=== PATIENT | female | born 1940 | race African-American/Black ===

== ENCOUNTER 2017-02-22 19:19 | Inpatient (IN) ==
[2017-02-22 20:33] LABS: Basophils % 0.1 % (0.0-0.8); Eosinophils # 0.1 10*3/uL (0.0-0.87); Eosinophils % 1.5 % (0.00-10.9); Immature Granulocytes % 0.3 %; Immature Granulocytes Absolute 0.02 #; Lymphocytes # 0.9 10*3/uL (1.4-4.0); Lymphocytes % 12.7 % (21.3-54.2); Mean Corpuscular HGB Conc 26.3 GM/DL (32-36); Mean Corpuscular Hemoglobin 19 PG (27-34); Mean Corpuscular Volume 72.2 FL (87-102); Monocytes # 0.4 10*3/uL (0.11-0.8); Monocytes % 6.4 % (1.7-12.7); Neutrophils # 5.3 10*3/uL (1.4-7.4); Platelet Count 231 T/CUMM (130-400); Red Blood Count 2.63 MC/CUMM (3.8-5.5); Red Cell Distribution Width 19.8 % (9.3-17.3); White Blood Count 6.8 T/CUMM (4-12)
[2017-02-22 20:39] LABS: PT Patient Result 10.4 SECS; Partial Thromboplastin Time 21.9 SECS (0-40)
[2017-02-22] MEDS ORDERED: SODIUM CHLORIDE 0.9% 1,000 ML IV PRN ×2 (20:46→23:59)
[2017-02-22 21:08] LABS: Potassium 4.1 MMOL/L (3.5-5.1)
[2017-02-22 21:19] LABS: Albumin 3.3 G/DL (3.4-5.0); Bilirubin,Total 0.4 MG/DL (0.2-1.0); Calcium 8.8 MG/DL (8.5-10.1); Total Protein 7.5 G/DL (6.4-8.3)
[2017-02-22 21:20] LABS: Osmolality,Calculated 283.4 MOS/KG (273-304)
[2017-02-22 21:36] LABS: Troponin I Only 0.018 NG/ML (0.00-0.045)
[2017-02-22 23:51] LABS: Hypochromasia 2+; Platelet Estimate Normal
[2017-02-22] MEDS ORDERED: ONDANSETRON 4 MG/2 ML VIAL IV PRN (23:59)
[2017-02-22] MEDS ORDERED: ACETAMINOPHEN 325 MG TABLET PO PRN (23:59)
[2017-02-23 06:51] LABS: Apearance,Urine CLEAR (Clear); Bacteria,Urine Occasional /HPF (Few); Bilirubin,Urine Negative (Negative); Blood, Urine Negative (Negative); Glucose,Urine (UA) Negative (Negative); Ketones,Urine Negative (Negative); Nitrite,Urine Negative (Negative); Protein,Urine Negative; RBC,Urine 1 /HPF (0-4); Squamous Epithelial Cell,Urine Occasional /HPF (0-10); Urine Color Straw (Yellow); Urine Specific Gravity 1.005 (1.001-1.035); Urine Urobilinogen < 2.0 EU/DL (0.2-1.0); WBC,Urine <1 /HPF (0-6)
[2017-02-23] MEDS: PANTOPRAZOLE 40 MG TABLET PO SCH ×2 (08:33→20:31)
[2017-02-23] MEDS ORDERED: DEXTROSE 50% 25 GM/50 ML VIAL IV PRN (08:55)
[2017-02-23] MEDS ORDERED: GLUCAGON 1 MG VIAL IM PRN (08:55)
[2017-02-23] MEDS ORDERED: FUROSEMIDE 20 MG TABLET PO PRN (11:06)
[2017-02-23] MEDS ORDERED: POTASSIUM CHLORIDE 8 MEQ CAPSULE PO PRN (11:30)
[2017-02-23] MEDS ORDERED: LORATADINE 10 MG TABLET PO PRN (11:30)
[2017-02-23 11:56] LABS: Basophils % 0.5 % (0.0-0.8); Eosinophils # 0.1 10*3/uL (0.0-0.87); Eosinophils % 0.9 % (0.00-10.9); Immature Granulocytes % 0.5 %; Immature Granulocytes Absolute 0.04 #; Lymphocytes # 0.9 10*3/uL (1.4-4.0); Lymphocytes % 12.3 % (21.3-54.2); Mean Corpuscular Hemoglobin 22 PG (27-34); Mean Corpuscular Volume 74.4 FL (87-102); Monocytes # 0.4 10*3/uL (0.11-0.8); Monocytes % 5.1 % (1.7-12.7); Neutrophils % 80.7 % (38.7-73.9); Platelet Count 231 T/CUMM (130-400); Red Blood Count 3.63 MC/CUMM (3.8-5.5); Red Cell Distribution Width 18.5 % (9.3-17.3); White Blood Count 7.5 T/CUMM (4-12)
[2017-02-23 11:59] LABS: Hemoglobin 8.1 GM/DL (12.0-16.0)
[2017-02-23 12:20] LABS: Giant Platelets Few; Hypochromasia 1+; Ovalocytes Slight; Platelet Estimate Adequate
[2017-02-23 12:21] LABS: Calcium 8.6 MG/DL (8.5-10.1); Osmolality,Calculated 277.7 MOS/KG (273-304); Potassium 3.9 MMOL/L (3.5-5.1)
[2017-02-23 14:12] LABS: % Iron Saturation 28.6 % (18-50); Ferritin 11.3 ng/ml (8-252)
[2017-02-23] MEDS: ATORVASTATIN 80 MG TABLET PO SCH (20:31)
[2017-02-23] MEDS: MONTELUKAST 10 MG TABLET PO SCH (20:31)
[2017-02-23] MEDS: CALCIUM (CARBONATE)/VITAMIN D 600 MG-400 UNIT TABLET PO SCH (20:31)
[2017-02-23] MEDS: DONEPEZIL 10 MG TABLET PO SCH (20:31)
[2017-02-23] MEDS: MEMANTINE 5 MG TABLET PO SCH (20:31)
[2017-02-24] MEDS ORDERED: NON-FORMULARY MEDICATION (Omeprazole [Prilosec] 20 MG) PO SCH (07:30)
[2017-02-24] MEDS: metFORMIN 500 MG TABLET PO SCH (09:43)
[2017-02-24] MEDS: MULTIVITAMIN (CENTRUM) TABLET PO SCH (09:44)
[2017-02-24] MEDS: PANTOPRAZOLE 40 MG TABLET PO SCH ×2 (09:44→20:50)
[2017-02-24] MEDS: MEMANTINE 5 MG TABLET PO SCH ×2 (09:44→20:50)
[2017-02-24] MEDS: CALCIUM (CARBONATE)/VITAMIN D 600 MG-400 UNIT TABLET PO SCH ×2 (09:44→20:49)
[2017-02-24] MEDS ORDERED: IRON DEXTRAN 25 MG in SYRINGE 1 EACH IV ONE (11:30)
[2017-02-24] MEDS ORDERED: PROPOFOL 200 MG/20 ML VIAL IV ONE (12:25)
[2017-02-24] MEDS ORDERED: LIDOCAINE 2% 5 ML VIAL ONE (12:25)
[2017-02-24] MEDS ORDERED: IRON DEXTRAN IV ONE (12:30)
[2017-02-24] MEDS ORDERED: SODIUM CHLORIDE 0.9% IV ONE (12:30)
[2017-02-24] MEDS: DONEPEZIL 10 MG TABLET PO SCH (20:49)
[2017-02-24] MEDS: ATORVASTATIN 80 MG TABLET PO SCH (20:50)
[2017-02-24] MEDS: MONTELUKAST 10 MG TABLET PO SCH (20:50)
[2017-02-25 08:33] LABS: Basophils % 0.4 % (0.0-0.8); Eosinophils # 0.1 10*3/uL (0.0-0.87); Eosinophils % 0.9 % (0.00-10.9); Hematocrit 27.9 VOL% (35.7-47.0); Immature Granulocytes % 0.5 %; Immature Granulocytes Absolute 0.04 #; Lymphocytes # 0.8 10*3/uL (1.4-4.0); Lymphocytes % 9.1 % (21.3-54.2); Mean Corpuscular HGB Conc 28.7 GM/DL (32-36); Mean Corpuscular Hemoglobin 22 PG (27-34); Mean Corpuscular Volume 76.9 FL (87-102); Mean Platelet Volume 12.9 FL (9.6-12.0); Monocytes # 0.5 10*3/uL (0.11-0.8); Monocytes % 5.3 % (1.7-12.7); NRBC # 0.02 10*3/uL; Neutrophils # 7.1 10*3/uL (1.4-7.4); Neutrophils % 83.8 % (38.7-73.9); Platelet Count 226 T/CUMM (130-400); Red Blood Count 3.63 MC/CUMM (3.8-5.5); Red Cell Distribution Width 20.1 % (9.3-17.3); White Blood Count 8.5 T/CUMM (4-12)
[2017-02-25] MEDS: MEMANTINE 5 MG TABLET PO SCH ×2 (09:09→21:13)
[2017-02-25] MEDS: MULTIVITAMIN (CENTRUM) TABLET PO SCH (09:09)
[2017-02-25] MEDS: PANTOPRAZOLE 40 MG TABLET PO SCH ×2 (09:09→21:13)
[2017-02-25] MEDS: CALCIUM (CARBONATE)/VITAMIN D 600 MG-400 UNIT TABLET PO SCH ×2 (09:09→21:12)
[2017-02-25] MEDS: metFORMIN 500 MG TABLET PO SCH ×2 (09:09→21:13)
[2017-02-25 09:31] LABS: Eosinophils 2 % (0-10); Hypochromasia 1+; Lymphocytes 11 % (20-55); Microcytosis 1+; Nucleated Red Blood Cells 1 (0-5); Ovalocytes Slight; Segmented Neutrophils 84 % (50-85); Total Cells Counted 100
[2017-02-25 09:32] LABS: Acanthocytes Few; Platelet Estimate Adequate
[2017-02-25] MEDS: DONEPEZIL 10 MG TABLET PO SCH (21:12)
[2017-02-25] MEDS: ATORVASTATIN 80 MG TABLET PO SCH (21:13)
[2017-02-25] MEDS: MONTELUKAST 10 MG TABLET PO SCH (21:13)
[2017-02-26 06:19] LABS: Basophils % 0.3 % (0.0-0.8); Eosinophils # 0.1 10*3/uL (0.0-0.87); Eosinophils % 1.2 % (0.00-10.9); Hematocrit 26.5 VOL% (35.7-47.0); Hemoglobin 7.7 GM/DL (12.0-16.0); Immature Granulocytes % 0.8 %; Immature Granulocytes Absolute 0.06 #; Lymphocytes # 0.9 10*3/uL (1.4-4.0); Mean Corpuscular HGB Conc 29.1 GM/DL (32-36); Mean Corpuscular Hemoglobin 22 PG (27-34); Mean Corpuscular Volume 76.6 FL (87-102); Monocytes # 0.5 10*3/uL (0.11-0.8); Monocytes % 6.5 % (1.7-12.7); NRBC # 0.07 10*3/uL; Neutrophils # 6.2 10*3/uL (1.4-7.4); Neutrophils % 79.2 % (38.7-73.9); Platelet Count 203 T/CUMM (130-400); Red Blood Count 3.46 MC/CUMM (3.8-5.5); Red Cell Distribution Width 21.1 % (9.3-17.3); White Blood Count 7.8 T/CUMM (4-12)
[2017-02-26 06:46] LABS: Acanthocytes Few; Anisocytosis Slight; Burr Cells Few; Hypochromasia Slight; Microcytosis 1+; Platelet Estimate Normal; Poikilocytosis 1+
[2017-02-26] MEDS: CALCIUM (CARBONATE)/VITAMIN D 600 MG-400 UNIT TABLET PO SCH (09:18)
[2017-02-26] MEDS: metFORMIN 500 MG TABLET PO SCH (09:18)
[2017-02-26] MEDS: MEMANTINE 5 MG TABLET PO SCH (09:18)
[2017-02-26] MEDS: PANTOPRAZOLE 40 MG TABLET PO SCH (09:18)
[2017-02-26] MEDS: MULTIVITAMIN (CENTRUM) TABLET PO SCH (09:18)
[2017-02-26] MEDS ORDERED: SODIUM CHLORIDE 0.9% 1,000 ML IV PRN (09:54)
[2017-02-26] MEDS ORDERED: FUROSEMIDE 40 MG TABLET PO ONE (15:29)
[2017-02-26 16:36] LABS: Hematocrit 32.6 VOL% (35.7-47.0); Hemoglobin 9.8 GM/DL (12.0-16.0)
[2017-02-26 16:42] VITALS: BP 145/70
== END 2017-02-26 18:15 | disposition home health service (06) | DRG 811 ==
LOC: EDUNIT# → EDBD → N.ED 19:19 → N.EDINP 23:59 → N.5E 02-23 00:41
PROVIDERS: ADMIT Internal Medicine; ATTEND Internal Medicine

== ENCOUNTER 2017-11-23 17:53 | Inpatient (IN) ==
[2017-11-23] MEDS ORDERED: FUROSEMIDE 100 MG/10 ML VIAL IV STA (18:36)
[2017-11-23] MEDS ORDERED: ONDANSETRON 4 MG/2 ML VIAL IV STA (18:36)
[2017-11-23] MEDS ORDERED: methylPREDNISolone SOD SUC 125 MG/2 ML VIAL IV STA (18:36)
[2017-11-23] MEDS ORDERED: ALBUTEROL NEB SOLN 5 MG/ML 20 ML/BOTTLE RESP TX SCH (19:00)
[2017-11-23 19:09] LABS: ABG Base Excess -4.9 MMOL/L (-2.5-2.5); ABG HCO3 18.7 MMOL/L (20-26); ABG Oxygen Saturation 97.2 % (95-100); ABG PCO2 27.6 MM HG (35-48); ABG PH 7.448 (7.35-7.45); ABG PO2 107.1 MM HG (80-95); ABG TCO2 19.5 MMOL/L (23-27); Allen Test Positive; Pt O2 Delivery Device Room Air
[2017-11-23 19:28] LABS: Immature Granulocytes % 0.3 %; Immature Granulocytes Absolute 0.01 #; Lymphocytes # 0.6 10*3/uL (1.4-4.0); Lymphocytes % 18.7 % (21.3-54.2); Mean Corpuscular HGB Conc 28.7 GM/DL (32-36); Mean Corpuscular Hemoglobin 29 PG (27-34); Mean Corpuscular Volume 99.3 FL (87-102); Mean Platelet Volume 12.6 FL (9.6-12.0); Monocytes # 0.2 10*3/uL (0.11-0.8); Monocytes % 4.5 % (1.7-12.7); Neutrophils # 2.5 10*3/uL (1.4-7.4); Neutrophils % 76.5 % (38.7-73.9); Red Blood Count 1.51 MC/CUMM (3.8-5.5); Red Cell Distribution Width 19.1 % (9.3-17.3); White Blood Count 3.3 T/CUMM (4-12)
[2017-11-23 19:31] LABS: Hemoglobin 4.3 GM/DL (12.0-16.0)
[2017-11-23 19:39] LABS: INR 0.9; PT Patient Result 9.8 SECS
[2017-11-23 19:48] LABS: Elliptocytes 1+; Hypochromasia 2+; Polychromasia Few
[2017-11-23 19:49] LABS: Alanine Aminotransferase 31 U/L (13-56); Albumin 2.8 G/DL (3.4-5.0); Alkaline Phosphatase 115 U/L (45-117); Aspartate Amino Transferase 49 U/L (0-37); Bilirubin,Total < 0.39 MG/DL (0.2-1.0); Blood Urea Nitrogen 38 MG/DL (7-18); Burr Cells 1+; Calcium 8.7 MG/DL (8.5-10.1); Glucose 469 MG/DL (74-106); Osmolality,Calculated 304.7 MOS/KG (273-304); Platelet Estimate Decreased; Potassium 4.4 MMOL/L (3.5-5.1); Sodium 138 MMOL/L (136-145); Total Protein 6.8 G/DL (6.4-8.3)
[2017-11-23 19:51] LABS: Platelet Count 76 T/CUMM (130-400)
[2017-11-23 20:02] LABS: Apearance,Urine CLEAR (Clear); Bilirubin,Urine Negative (Negative); Blood, Urine Negative (Negative); Glucose,Urine (UA) >=500 mg/dL (Negative); Ketones,Urine Negative (Negative); Mucus,Urine Occasional /LPF (Occasional); Nitrite,Urine Negative (Negative); Protein,Urine Negative; Squamous Epithelial Cell,Urine Occasional /HPF (0-10); Urine Color Colorless (Yellow); Urine Specific Gravity 1.007 (1.001-1.035); Urine Urobilinogen < 2.0 EU/DL (0.2-1.0)
[2017-11-23] MEDS ORDERED: SODIUM CHLORIDE 0.9% 1,000 ML IV PRN (20:27)
[2017-11-23] MEDS ORDERED: ONDANSETRON 4 MG/2 ML VIAL IV PRN (21:05)
[2017-11-23] MEDS ORDERED: MORPHINE 4 MG/1 ML VIAL IV PRN (21:05)
[2017-11-23] MEDS ORDERED: NICOTINE 21 MG/24 HR PATCH TRANSDERM PRN (21:05)
[2017-11-23] MEDS ORDERED: ALBUTEROL 2.5 MG/3 ML NEB RESP TX PRN (21:05)
[2017-11-23] MEDS ORDERED: DEXTROSE 5% NACL 0.45% 1,000 ML IV SCH (21:30)
[2017-11-23] MEDS ORDERED: GLUCAGON 1 MG VIAL IM PRN (21:45)
[2017-11-23] MEDS ORDERED: DEXTROSE 50% 25 GM/50 ML VIAL IV PRN (21:45)
[2017-11-23 22:05] LABS: % Iron Saturation 16.4 % (18-50)
[2017-11-23] MEDS ORDERED: INSULIN REGULAR 100 UNIT/ML IV ONE (23:37)
[2017-11-24] MEDS: INSULIN REGULAR 100 UNIT/ML SUBCUT SCH ×4 (00:38→19:29)
[2017-11-24] MEDS: SODIUM CHLORIDE 0.45% 1,000 ML IV SCH ×2 (00:55→21:05)
[2017-11-24] MEDS ORDERED: FUROSEMIDE 20 MG/2 ML VIAL IV ONE ×2 (00:58→04:00)
[2017-11-24 05:11] LABS: Basophils % 0.3 % (0.0-0.8); Hemoglobin 9.1 GM/DL (12.0-16.0); Immature Granulocytes % 0.8 %; Immature Granulocytes Absolute 0.03 #; Lymphocytes # 0.4 10*3/uL (1.4-4.0); Lymphocytes % 9.8 % (21.3-54.2); Mean Corpuscular HGB Conc 31.4 GM/DL (32-36); Mean Corpuscular Hemoglobin 30 PG (27-34); Mean Corpuscular Volume 94.8 FL (87-102); Mean Platelet Volume 13.1 FL (9.6-12.0); Monocytes # 0.1 10*3/uL (0.11-0.8); Monocytes % 2.6 % (1.7-12.7); NRBC # 0.04 10*3/uL; Neutrophils # 3.3 10*3/uL (1.4-7.4); Neutrophils % 86.5 % (38.7-73.9); Red Blood Count 3.06 MC/CUMM (3.8-5.5); Red Cell Distribution Width 16.6 % (9.3-17.3); White Blood Count 3.9 T/CUMM (4-12)
[2017-11-24 05:17] LABS: Platelet Count 62 T/CUMM (130-400)
[2017-11-24 05:34] LABS: Anisocytosis 1+; Hypochromasia 1+; Microcytosis 1+
[2017-11-24 05:35] LABS: Platelet Estimate Decreased
[2017-11-24 05:45] LABS: Bilirubin,Total 0.8 MG/DL (0.2-1.0); Calcium 9.2 MG/DL (8.5-10.1); Osmolality,Calculated 307.3 MOS/KG (273-304); Potassium 4.2 MMOL/L (3.5-5.1); Risk Ratio 3.59; Total Protein 7.1 G/DL (6.4-8.3)
[2017-11-24 05:54] LABS: Folate > 24.0 NG/ML (5.4-24.0); Vitamin B12 1520 PG/ML (211-911)
[2017-11-24 06:02] LABS: Troponin I 20.6 NG/ML (0.00-0.045)
[2017-11-24] MEDS: ISOSORBIDE MONONITRATE 30 MG TABLET PO SCH (08:31)
[2017-11-24] MEDS: CARVEDILOL 3.125 MG TABLET PO SCH ×2 (08:31→21:05)
[2017-11-24] MEDS: ASCORBIC ACID 500 MG TABLET PO SCH ×2 (08:31→21:05)
[2017-11-24] MEDS: PANTOPRAZOLE 40 MG VIAL IV SCH (08:31)
[2017-11-24 13:39] LABS: Troponin I 11.4 NG/ML (0.00-0.045)
[2017-11-24] MEDS ORDERED: DONEPEZIL 10 MG TABLET PO SCH (21:00)
[2017-11-24] MEDS: MULTIVITAMIN (CENTRUM) TABLET PO SCH (21:05)
[2017-11-24] MEDS: MONTELUKAST 10 MG TABLET PO SCH (21:05)
[2017-11-24] MEDS: MEMANTINE 5 MG TABLET PO SCH (21:05)
[2017-11-24] MEDS: CALCIUM (CARBONATE)/VITAMIN D 600 MG-400 UNIT TABLET PO SCH (21:05)
[2017-11-24] MEDS: ATORVASTATIN 80 MG TABLET PO SCH (21:06)
[2017-11-24 21:25] LABS: Troponin I 6.21 NG/ML (0.00-0.045)
[2017-11-25] MEDS: INSULIN REGULAR 100 UNIT/ML SUBCUT SCH ×4 (01:19→18:14)
[2017-11-25 04:49] LABS: Basophils % 0.3 % (0.0-0.8); Eosinophils % 0.3 % (0.00-10.9); Hematocrit 23.8 VOL% (35.7-47.0); Hemoglobin 7.5 GM/DL (12.0-16.0); Immature Granulocytes % 0.6 %; Immature Granulocytes Absolute 0.02 #; Lymphocytes # 1.1 10*3/uL (1.4-4.0); Lymphocytes % 31.1 % (21.3-54.2); Mean Corpuscular HGB Conc 31.5 GM/DL (32-36); Mean Corpuscular Hemoglobin 30 PG (27-34); Mean Corpuscular Volume 95.2 FL (87-102); Mean Platelet Volume 13.5 FL (9.6-12.0); Monocytes # 0.2 10*3/uL (0.11-0.8); Monocytes % 6.4 % (1.7-12.7); NRBC # 0.02 10*3/uL; Neutrophils # 2.2 10*3/uL (1.4-7.4); Neutrophils % 61.3 % (38.7-73.9); Red Cell Distribution Width 17.6 % (9.3-17.3); White Blood Count 3.6 T/CUMM (4-12)
[2017-11-25 04:52] LABS: Platelet Count 44 T/CUMM (130-400)
[2017-11-25 05:01] LABS: Osmolality,Calculated 292.1 MOS/KG (273-304); Potassium 3.8 MMOL/L (3.5-5.1)
[2017-11-25 05:18] LABS: Platelet Estimate Decreased
[2017-11-25 05:19] LABS: Anisocytosis 2+; Hypochromasia 2+; Microcytosis 2+; Ovalocytes 1+; Polychromasia Few
[2017-11-25] MEDS: CALCIUM (CARBONATE)/VITAMIN D 600 MG-400 UNIT TABLET PO SCH ×2 (09:49→20:34)
[2017-11-25] MEDS: FERROUS SULFATE 325 MG TABLET PO SCH (09:49)
[2017-11-25] MEDS: PANTOPRAZOLE 40 MG TABLET PO SCH (09:49)
[2017-11-25] MEDS: MEMANTINE 5 MG TABLET PO SCH ×2 (09:49→20:34)
[2017-11-25] MEDS: MULTIVITAMIN (CENTRUM) TABLET PO SCH ×2 (09:49→20:34)
[2017-11-25] MEDS: FUROSEMIDE 20 MG TABLET PO SCH (09:50)
[2017-11-25] MEDS: LORATADINE 10 MG TABLET PO SCH (09:50)
[2017-11-25] MEDS: ISOSORBIDE MONONITRATE 30 MG TABLET PO SCH (09:50)
[2017-11-25] MEDS: ASCORBIC ACID 500 MG TABLET PO SCH ×2 (09:50→20:34)
[2017-11-25] MEDS: CARVEDILOL 3.125 MG TABLET PO SCH ×2 (09:54→20:34)
[2017-11-25] MEDS: PANTOPRAZOLE 40 MG VIAL IV SCH (11:49)
[2017-11-25 14:24] LABS: Basophils % 0.3 % (0.0-0.8); Eosinophils % 0.6 % (0.00-10.9); Hematocrit 24.7 VOL% (35.7-47.0); Hemoglobin 7.8 GM/DL (12.0-16.0); Immature Granulocytes % 0.6 %; Immature Granulocytes Absolute 0.02 #; Lymphocytes % 27.4 % (21.3-54.2); Mean Corpuscular HGB Conc 31.6 GM/DL (32-36); Mean Corpuscular Hemoglobin 30 PG (27-34); Mean Corpuscular Volume 95.4 FL (87-102); Mean Platelet Volume 12.8 FL (9.6-12.0); Monocytes # 0.2 10*3/uL (0.11-0.8); Monocytes % 5.8 % (1.7-12.7); NRBC # 0.03 10*3/uL; Neutrophils # 2.4 10*3/uL (1.4-7.4); Neutrophils % 65.3 % (38.7-73.9); Platelet Count 52 T/CUMM (130-400); Red Blood Count 2.59 MC/CUMM (3.8-5.5); Red Cell Distribution Width 17.3 % (9.3-17.3); White Blood Count 3.6 T/CUMM (4-12)
[2017-11-25 14:33] LABS: INR 0.9
[2017-11-25 14:45] LABS: Hypochromasia Slight
[2017-11-25 14:46] LABS: Polychromasia Few
[2017-11-25 14:47] LABS: Anisocytosis Slight; Macrocytosis Slight
[2017-11-25 14:49] LABS: Platelet Estimate Normal
[2017-11-25] MEDS ORDERED: FUROSEMIDE 20 MG/2 ML VIAL IV PRN (15:00)
[2017-11-25] MEDS ORDERED: SODIUM CHLORIDE 0.9% 1,000 ML IV PRN (15:00)
[2017-11-25] MEDS: MONTELUKAST 10 MG TABLET PO SCH (20:34)
[2017-11-25] MEDS: ATORVASTATIN 80 MG TABLET PO SCH (20:34)
[2017-11-26] MEDS: SODIUM CHLORIDE 0.45% 1,000 ML IV SCH (00:26)
[2017-11-26] MEDS: INSULIN REGULAR 100 UNIT/ML SUBCUT SCH ×4 (03:18→18:54)
[2017-11-26 05:47] LABS: Basophils % 0.5 % (0.0-0.8); Eosinophils % 0.5 % (0.00-10.9); Hematocrit 32.9 VOL% (35.7-47.0); Hemoglobin 10.7 GM/DL (12.0-16.0); Immature Granulocytes % 0.2 %; Immature Granulocytes Absolute 0.01 #; Lymphocytes # 1.1 10*3/uL (1.4-4.0); Mean Corpuscular HGB Conc 32.5 GM/DL (32-36); Mean Corpuscular Hemoglobin 30 PG (27-34); Mean Corpuscular Volume 92.2 FL (87-102); Mean Platelet Volume 12.6 FL (9.6-12.0); Monocytes # 0.2 10*3/uL (0.11-0.8); Monocytes % 3.9 % (1.7-12.7); NRBC # 0.04 10*3/uL; Neutrophils # 2.8 10*3/uL (1.4-7.4); Neutrophils % 67.9 % (38.7-73.9); Platelet Count 47 T/CUMM (130-400); Red Blood Count 3.57 MC/CUMM (3.8-5.5); Red Cell Distribution Width 16.4 % (9.3-17.3); White Blood Count 4.1 T/CUMM (4-12)
[2017-11-26 06:04] LABS: Calcium 7.9 MG/DL (8.5-10.1); Osmolality,Calculated 284.4 MOS/KG (273-304); Potassium 3.5 MMOL/L (3.5-5.1)
[2017-11-26 06:08] LABS: Hypochromasia 1+; Ovalocytes Slight; Platelet Estimate Decreased
[2017-11-26 06:09] LABS: Microcytosis Slight
[2017-11-26] MEDS ORDERED: MAGNESIUM SULF RIDER 2 GM in PREMIX 1 EACH IV ONE (09:53)
[2017-11-26] MEDS: ASCORBIC ACID 500 MG TABLET PO SCH ×2 (10:09→20:23)
[2017-11-26] MEDS: CALCIUM (CARBONATE)/VITAMIN D 600 MG-400 UNIT TABLET PO SCH ×2 (10:09→20:23)
[2017-11-26] MEDS: PANTOPRAZOLE 40 MG TABLET PO SCH (10:10)
[2017-11-26] MEDS: FERROUS SULFATE 325 MG TABLET PO SCH (10:10)
[2017-11-26] MEDS: MULTIVITAMIN (CENTRUM) TABLET PO SCH ×2 (10:10→20:23)
[2017-11-26] MEDS: LORATADINE 10 MG TABLET PO SCH (10:10)
[2017-11-26] MEDS: MEMANTINE 5 MG TABLET PO SCH ×2 (10:11→20:23)
[2017-11-26] MEDS: ISOSORBIDE MONONITRATE 30 MG TABLET PO SCH (10:11)
[2017-11-26] MEDS: FUROSEMIDE 20 MG TABLET PO SCH (10:12)
[2017-11-26] MEDS: CARVEDILOL 3.125 MG TABLET PO SCH ×2 (10:12→20:23)
[2017-11-26] MEDS: MONTELUKAST 10 MG TABLET PO SCH (20:23)
[2017-11-26] MEDS: ATORVASTATIN 80 MG TABLET PO SCH (20:23)
[2017-11-27] MEDS: INSULIN REGULAR 100 UNIT/ML SUBCUT SCH ×4 (00:14→17:16)
[2017-11-27 05:23] LABS: Basophils % 0.2 % (0.0-0.8); Eosinophils % 0.6 % (0.00-10.9); Hematocrit 33.4 VOL% (35.7-47.0); Hemoglobin 10.9 GM/DL (12.0-16.0); Immature Granulocytes % 0.4 %; Immature Granulocytes Absolute 0.02 #; Lymphocytes # 0.9 10*3/uL (1.4-4.0); Lymphocytes % 17.2 % (21.3-54.2); Mean Corpuscular HGB Conc 32.6 GM/DL (32-36); Mean Corpuscular Hemoglobin 31 PG (27-34); Mean Corpuscular Volume 94.4 FL (87-102); Mean Platelet Volume 13.7 FL (9.6-12.0); Monocytes # 0.2 10*3/uL (0.11-0.8); Monocytes % 2.8 % (1.7-12.7); Neutrophils # 4.2 10*3/uL (1.4-7.4); Neutrophils % 78.8 % (38.7-73.9); Platelet Count 58 T/CUMM (130-400); Red Blood Count 3.54 MC/CUMM (3.8-5.5); Red Cell Distribution Width 16.9 % (9.3-17.3); White Blood Count 5.4 T/CUMM (4-12)
[2017-11-27 05:33] LABS: Calcium 8.7 MG/DL (8.5-10.1); Osmolality,Calculated 288.1 MOS/KG (273-304); Potassium 3.6 MMOL/L (3.5-5.1)
[2017-11-27 06:03] LABS: Band Neutrophils 1 % (0-10); Eosinophils 1 % (0-10); Hypochromasia 1+; Lymphocytes 14 % (20-55); Macrocytosis Slight; Platelet Estimate Decreased; Segmented Neutrophils 83 % (50-85); Total Cells Counted 100
[2017-11-27 06:04] LABS: Polychromasia Slight
[2017-11-27] MEDS ORDERED: INFLUENZA VIRUS VACCINE 0.5 ML SYRINGE IM ONE (07:20)
[2017-11-27] MEDS ORDERED: MAGNESIUM SULF RIDER 4 GM in PREMIX 1 EACH IV PRN (09:23)
[2017-11-27] MEDS ORDERED: MAGNESIUM SULF RIDER 2 GM in PREMIX 1 EACH IV PRN (09:23)
[2017-11-27] MEDS: MULTIVITAMIN (CENTRUM) TABLET PO SCH ×2 (09:41→22:45)
[2017-11-27] MEDS: ISOSORBIDE MONONITRATE 30 MG TABLET PO SCH (09:41)
[2017-11-27] MEDS: FUROSEMIDE 20 MG TABLET PO SCH (09:42)
[2017-11-27] MEDS: CALCIUM (CARBONATE)/VITAMIN D 600 MG-400 UNIT TABLET PO SCH ×2 (09:42→22:44)
[2017-11-27] MEDS: ASCORBIC ACID 500 MG TABLET PO SCH ×2 (09:42→22:45)
[2017-11-27] MEDS: LORATADINE 10 MG TABLET PO SCH (09:42)
[2017-11-27] MEDS: CARVEDILOL 3.125 MG TABLET PO SCH ×2 (09:42→22:45)
[2017-11-27] MEDS: MEMANTINE 5 MG TABLET PO SCH ×2 (09:42→22:45)
[2017-11-27] MEDS: FERROUS SULFATE 325 MG TABLET PO SCH (09:42)
[2017-11-27] MEDS: PANTOPRAZOLE 40 MG TABLET PO SCH (09:42)
[2017-11-27] MEDS ORDERED: TUBERCULIN SKIN TEST 0.1 ML SYRINGE INTRADERM ONE (12:16)
[2017-11-27] MEDS: ATORVASTATIN 80 MG TABLET PO SCH (22:44)
[2017-11-27] MEDS: MONTELUKAST 10 MG TABLET PO SCH (22:44)
[2017-11-28] MEDS: INSULIN REGULAR 100 UNIT/ML SUBCUT SCH ×3 (00:39→12:35)
[2017-11-28 04:14] LABS: Basophils % 0.2 % (0.0-0.8); Eosinophils % 0.8 % (0.00-10.9); Hematocrit 34.6 VOL% (35.7-47.0); Hemoglobin 10.7 GM/DL (12.0-16.0); Immature Granulocytes % 0.2 %; Immature Granulocytes Absolute 0.01 #; Lymphocytes # 0.9 10*3/uL (1.4-4.0); Lymphocytes % 17.3 % (21.3-54.2); Mean Corpuscular HGB Conc 30.9 GM/DL (32-36); Mean Corpuscular Hemoglobin 30 PG (27-34); Mean Corpuscular Volume 95.3 FL (87-102); Mean Platelet Volume 13.3 FL (9.6-12.0); Monocytes # 0.2 10*3/uL (0.11-0.8); Monocytes % 4.1 % (1.7-12.7); Neutrophils # 3.8 10*3/uL (1.4-7.4); Neutrophils % 77.4 % (38.7-73.9); Red Blood Count 3.63 MC/CUMM (3.8-5.5); Red Cell Distribution Width 17.2 % (9.3-17.3); White Blood Count 4.9 T/CUMM (4-12)
[2017-11-28 04:18] LABS: Platelet Count 71 T/CUMM (130-400)
[2017-11-28 04:38] LABS: Atypical Lymphocytes Few; Band Neutrophils 1 % (0-10); Eosinophils 1 % (0-10); Lymphocytes 21 % (20-55); Segmented Neutrophils 70 % (50-85); Total Cells Counted 100
[2017-11-28 04:39] LABS: Hypochromasia 1+; Macrocytosis 1+; Ovalocytes Slight; Polychromasia Slight
[2017-11-28 04:40] LABS: Platelet Estimate Decreased
[2017-11-28] MEDS: MULTIVITAMIN (CENTRUM) TABLET PO SCH (09:37)
[2017-11-28] MEDS: PANTOPRAZOLE 40 MG TABLET PO SCH (09:37)
[2017-11-28] MEDS: MEMANTINE 5 MG TABLET PO SCH (09:37)
[2017-11-28] MEDS: ISOSORBIDE MONONITRATE 30 MG TABLET PO SCH (09:37)
[2017-11-28] MEDS: CALCIUM (CARBONATE)/VITAMIN D 600 MG-400 UNIT TABLET PO SCH (09:38)
[2017-11-28] MEDS: ASCORBIC ACID 500 MG TABLET PO SCH (09:38)
[2017-11-28] MEDS: CARVEDILOL 3.125 MG TABLET PO SCH (09:38)
[2017-11-28] MEDS: FERROUS SULFATE 325 MG TABLET PO SCH (09:38)
[2017-11-28] MEDS: LORATADINE 10 MG TABLET PO SCH (09:38)
[2017-11-28] MEDS: FUROSEMIDE 20 MG TABLET PO SCH (09:38)
[2017-11-28 13:12] VITALS: BP 131/56
== END 2017-11-28 14:02 | DRG 280 ==
LOC: EDBD → EDUNIT# → N.ED 17:53 → SUATTDRO 21:05 → N.EDINP 21:05 → N.CC 22:14 → N.4E 11-24 17:47
PROVIDERS: ADMIT Family Medicine; ATTEND Internal Medicine

== ENCOUNTER 2017-12-23 16:35 | Inpatient (IN) ==
[2017-12-23] MEDS ORDERED: ONDANSETRON 4 MG/2 ML VIAL IV STA (17:00)
[2017-12-23] MEDS ORDERED: KETOROLAC 30 MG/1 ML VIAL IV STA (17:00)
[2017-12-23 17:53] LABS: Alanine Aminotransferase 23 U/L (13-56); Albumin 2.5 G/DL (3.4-5.0); Alkaline Phosphatase 111 U/L (45-117); Aspartate Amino Transferase 23 U/L (0-37); Blood Urea Nitrogen 21 MG/DL (7-18); Glucose 291 MG/DL (74-106); Osmolality,Calculated 286.8 MOS/KG (273-304); Potassium 3.5 MMOL/L (3.5-5.1); Sodium 137 MMOL/L (136-145); Total Protein 6.6 G/DL (6.4-8.3)
[2017-12-23 17:54] LABS: Troponin I 0.056 NG/ML (0.00-0.045)
[2017-12-23] MEDS ORDERED: NITROGLYCERIN 2% OINT 1 INCH/GM PACK TOP STA (18:25)
[2017-12-23 18:46] LABS: Basophils % 0.1 % (0.0-0.8); Immature Granulocytes % 0.9 %; Immature Granulocytes Absolute 0.18 #; Lymphocytes # 0.7 10*3/uL (1.4-4.0); Lymphocytes % 3.6 % (21.3-54.2); Mean Corpuscular HGB Conc 29.3 GM/DL (32-36); Mean Corpuscular Hemoglobin 32 PG (27-34); Mean Corpuscular Volume 109.9 FL (87-102); Mean Platelet Volume 12.4 FL (9.6-12.0); Monocytes % 4.8 % (1.7-12.7); NRBC # 0.09 10*3/uL; Neutrophils # 18.4 10*3/uL (1.4-7.4); Neutrophils % 90.6 % (38.7-73.9); Platelet Count 256 T/CUMM (130-400); Red Blood Count 1.52 MC/CUMM (3.8-5.5); Red Cell Distribution Width 21.7 % (9.3-17.3); White Blood Count 20.3 T/CUMM (4-12)
[2017-12-23 18:49] LABS: Hemoglobin 4.9 GM/DL (12.0-16.0)
[2017-12-23 18:50] LABS: Hematocrit 16.7 VOL% (35.7-47.0)
[2017-12-23 19:02] LABS: INR 0.9
[2017-12-23 19:16] LABS: Band Neutrophils 1 % (0-10); Hypochromasia 1+; Lymphocytes 3 % (20-55); Macrocytosis 1+; Platelet Estimate Normal; Segmented Neutrophils 95 % (50-85); Total Cells Counted 100
[2017-12-23 19:17] LABS: Howell-Jolly Bodies Slight; Polychromasia Slight
[2017-12-23 20:18] LABS: Apearance,Urine CLEAR (Clear); Bacteria,Urine Many /HPF (Few); Bilirubin,Urine Negative (Negative); Blood, Urine Negative (Negative); Glucose,Urine (UA) 50 mg/dL (Negative); Ketones,Urine Negative (Negative); Mucus,Urine Occasional /LPF (Occasional); Nitrite,Urine Positive (Negative); Protein,Urine Negative; RBC,Urine 1 /HPF (0-4); Urine Color Yellow (Yellow); Urine Urobilinogen < 2.0 EU/DL (0.2-1.0); WBC,Urine 12 /HPF (0-6)
[2017-12-23] MEDS ORDERED: LEVOFLOXACIN INJ 750 MG in PREMIX 1 EACH IV STA (20:33)
[2017-12-23] MEDS ORDERED: SODIUM CHLORIDE 0.9% 1,000 ML IV PRN (21:16)
[2017-12-23] MEDS ORDERED: ALBUTEROL 2.5 MG/3 ML NEB RESP TX PRN (21:16)
[2017-12-23] MEDS ORDERED: diphenhydrAMINE CAP 25 MG CAPSULE PO PRN (21:16)
[2017-12-23] MEDS ORDERED: ONDANSETRON 4 MG/2 ML VIAL IV PRN (21:16)
[2017-12-23] MEDS ORDERED: MORPHINE 4 MG/1 ML VIAL IV PRN (21:16)
[2017-12-23] MEDS ORDERED: GLUCAGON 1 MG VIAL IM PRN (21:25)
[2017-12-23] MEDS ORDERED: DEXTROSE 50% 25 GM/50 ML SYRINGE IV PRN (21:25)
[2017-12-24] MEDS: LEVOFLOXACIN INJ 750 MG in PREMIX 1 EACH IV SCH ×2 (00:24→23:16)
[2017-12-24] MEDS: INSULIN REGULAR 100 UNIT/ML SUBCUT SCH ×4 (00:24→17:10)
[2017-12-24 05:35] LABS: Basophils % 0.3 % (0.0-0.8); Eosinophils # 0.1 10*3/uL (0.0-0.87); Eosinophils % 0.7 % (0.00-10.9); Hemoglobin 6.9 GM/DL (12.0-16.0); Immature Granulocytes % 0.9 %; Immature Granulocytes Absolute 0.09 #; Lymphocytes # 0.5 10*3/uL (1.4-4.0); Lymphocytes % 4.9 % (21.3-54.2); Mean Corpuscular HGB Conc 31.4 GM/DL (32-36); Mean Corpuscular Hemoglobin 30 PG (27-34); Mean Corpuscular Volume 96.9 FL (87-102); Mean Platelet Volume 12.1 FL (9.6-12.0); Monocytes # 0.7 10*3/uL (0.11-0.8); Monocytes % 7.1 % (1.7-12.7); NRBC # 0.07 10*3/uL; Neutrophils # 8.8 10*3/uL (1.4-7.4); Neutrophils % 86.1 % (38.7-73.9); Platelet Count 203 T/CUMM (130-400); Red Blood Count 2.27 MC/CUMM (3.8-5.5); White Blood Count 10.2 T/CUMM (4-12)
[2017-12-24 05:55] LABS: Calcium 8.5 MG/DL (8.5-10.1); Potassium 3.4 MMOL/L (3.5-5.1)
[2017-12-24 06:03] LABS: Eosinophils 1 % (0-10); Hypochromasia 1+; Lymphocytes 5 % (20-55); Macrocytosis Slight; Nucleated Red Blood Cells 2 (0-5); Platelet Estimate Adequate; Segmented Neutrophils 91 % (50-85); Total Cells Counted 100
[2017-12-24 06:04] LABS: Polychromasia Slight
[2017-12-24] MEDS: MEMANTINE 5 MG TABLET PO SCH ×2 (08:12→17:09)
[2017-12-24] MEDS: FERROUS SULFATE 325 MG TABLET PO SCH (08:12)
[2017-12-24] MEDS: FUROSEMIDE 20 MG TABLET PO SCH (08:12)
[2017-12-24] MEDS: PANTOPRAZOLE 40 MG VIAL IV SCH ×2 (08:13→20:47)
[2017-12-24] MEDS: ISOSORBIDE DINITRATE 10 MG TABLET PO SCH (08:16)
[2017-12-24] MEDS: CARVEDILOL 3.125 MG TABLET PO SCH ×2 (08:17→20:48)
[2017-12-24] MEDS ORDERED: PANTOPRAZOLE 40 MG VIAL IV SCH (09:00)
[2017-12-24] MEDS ORDERED: SODIUM CHLORIDE 0.9% 1,000 ML IV PRN (09:16)
[2017-12-24 17:04] LABS: Hematocrit 31.5 VOL% (35.7-47.0)
[2017-12-24 17:05] LABS: Hemoglobin 10.5 GM/DL (12.0-16.0)
[2017-12-24] MEDS: INSULIN GLARGINE 100 UNIT/ML SUBCUT SCH (20:48)
[2017-12-24] MEDS: DONEPEZIL 10 MG TABLET PO SCH (20:48)
[2017-12-25] MEDS: INSULIN REGULAR 100 UNIT/ML SUBCUT SCH ×5 (01:45→23:59)
[2017-12-25] MEDS ORDERED: LIDOCAINE 100 MG/5 ML SYRINGE ONE (09:00)
[2017-12-25] MEDS ORDERED: PROPOFOL 200 MG/20 ML VIAL IV ONE (09:00)
[2017-12-25] MEDS: FERROUS SULFATE 325 MG TABLET PO SCH (10:15)
[2017-12-25] MEDS: FUROSEMIDE 20 MG TABLET PO SCH (10:15)
[2017-12-25] MEDS: ISOSORBIDE DINITRATE 10 MG TABLET PO SCH (10:16)
[2017-12-25] MEDS: MEMANTINE 5 MG TABLET PO SCH ×2 (10:16→18:51)
[2017-12-25] MEDS: CARVEDILOL 3.125 MG TABLET PO SCH ×2 (10:17→21:01)
[2017-12-25] MEDS: PANTOPRAZOLE 40 MG VIAL IV SCH ×2 (10:18→21:02)
[2017-12-25] MEDS: DONEPEZIL 10 MG TABLET PO SCH (21:01)
[2017-12-25] MEDS: INSULIN GLARGINE 100 UNIT/ML SUBCUT SCH (21:02)
[2017-12-25] MEDS: LEVOFLOXACIN INJ 750 MG in PREMIX 1 EACH IV SCH (23:59)
[2017-12-26 05:33] LABS: Basophils % 0.3 % (0.0-0.8); Eosinophils # 0.2 10*3/uL (0.0-0.87); Eosinophils % 1.8 % (0.00-10.9); Hematocrit 32.2 VOL% (35.7-47.0); Hemoglobin 10.3 GM/DL (12.0-16.0); Immature Granulocytes % 0.4 %; Immature Granulocytes Absolute 0.04 #; Lymphocytes # 0.7 10*3/uL (1.4-4.0); Lymphocytes % 7.9 % (21.3-54.2); Mean Corpuscular Hemoglobin 31 PG (27-34); Mean Corpuscular Volume 95.5 FL (87-102); Mean Platelet Volume 12.7 FL (9.6-12.0); Monocytes # 0.9 10*3/uL (0.11-0.8); NRBC # 0.03 10*3/uL; Neutrophils # 7.6 10*3/uL (1.4-7.4); Neutrophils % 80.6 % (38.7-73.9); Platelet Count 206 T/CUMM (130-400); Red Blood Count 3.37 MC/CUMM (3.8-5.5); Red Cell Distribution Width 21.2 % (9.3-17.3); White Blood Count 9.4 T/CUMM (4-12)
[2017-12-26 06:08] LABS: Calcium 8.5 MG/DL (8.5-10.1); Osmolality,Calculated 281.8 MOS/KG (273-304); Potassium 3.4 MMOL/L (3.5-5.1)
[2017-12-26] MEDS: INSULIN REGULAR 100 UNIT/ML SUBCUT SCH ×3 (06:48→18:31)
[2017-12-26] MEDS ORDERED: HEPARIN LOCK FLUSH 500 UNIT/5 ML SYRINGE IV ONE (09:10)
[2017-12-26] MEDS: FUROSEMIDE 20 MG TABLET PO SCH (09:29)
[2017-12-26] MEDS: FERROUS SULFATE 325 MG TABLET PO SCH (09:29)
[2017-12-26] MEDS: CARVEDILOL 3.125 MG TABLET PO SCH ×2 (09:30→21:12)
[2017-12-26] MEDS: MEMANTINE 5 MG TABLET PO SCH ×2 (09:31→17:26)
[2017-12-26] MEDS: ISOSORBIDE DINITRATE 10 MG TABLET PO SCH (09:32)
[2017-12-26] MEDS: FLUCONAZOLE 100 MG TABLET PO SCH (09:34)
[2017-12-26] MEDS: PANTOPRAZOLE 40 MG VIAL IV SCH ×2 (09:35→21:13)
[2017-12-26] MEDS: cefTRIAXone 1,000 MG in SYRINGE 1 EACH IV SCH (09:38)
[2017-12-26] MEDS ORDERED: MONTELUKAST 10 MG TABLET PO SCH (21:00)
[2017-12-26] MEDS ORDERED: ATORVASTATIN 80 MG TABLET PO SCH (21:00)
[2017-12-26] MEDS: DONEPEZIL 10 MG TABLET PO SCH (21:13)
[2017-12-26] MEDS: INSULIN GLARGINE 100 UNIT/ML SUBCUT SCH (21:13)
[2017-12-27] MEDS: INSULIN REGULAR 100 UNIT/ML SUBCUT SCH ×3 (00:56→12:10)
[2017-12-27 05:49] LABS: Basophils # 0.1 10*3/uL (0.0-0.2); Basophils % 0.5 % (0.0-0.8); Eosinophils # 0.2 10*3/uL (0.0-0.87); Hematocrit 32.1 VOL% (35.7-47.0); Hemoglobin 10.1 GM/DL (12.0-16.0); Immature Granulocytes % 0.7 %; Immature Granulocytes Absolute 0.07 #; Lymphocytes # 0.9 10*3/uL (1.4-4.0); Lymphocytes % 9.1 % (21.3-54.2); Mean Corpuscular HGB Conc 31.5 GM/DL (32-36); Mean Corpuscular Hemoglobin 31 PG (27-34); Mean Corpuscular Volume 97.9 FL (87-102); Mean Platelet Volume 11.9 FL (9.6-12.0); Monocytes # 0.9 10*3/uL (0.11-0.8); Monocytes % 8.9 % (1.7-12.7); Neutrophils # 7.7 10*3/uL (1.4-7.4); Neutrophils % 78.8 % (38.7-73.9); Platelet Count 184 T/CUMM (130-400); Red Blood Count 3.28 MC/CUMM (3.8-5.5); Red Cell Distribution Width 20.7 % (9.3-17.3); White Blood Count 9.7 T/CUMM (4-12)
[2017-12-27 06:09] LABS: Calcium 8.1 MG/DL (8.5-10.1); Osmolality,Calculated 282.3 MOS/KG (273-304); Potassium 3.8 MMOL/L (3.5-5.1)
[2017-12-27] MEDS: FUROSEMIDE 20 MG TABLET PO SCH (09:22)
[2017-12-27] MEDS: CARVEDILOL 3.125 MG TABLET PO SCH (09:22)
[2017-12-27] MEDS: ISOSORBIDE DINITRATE 10 MG TABLET PO SCH (09:22)
[2017-12-27] MEDS: MEMANTINE 5 MG TABLET PO SCH (09:22)
[2017-12-27] MEDS: FLUCONAZOLE 100 MG TABLET PO SCH (09:22)
[2017-12-27] MEDS: PANTOPRAZOLE 40 MG VIAL IV SCH (09:23)
[2017-12-27] MEDS: cefTRIAXone 1,000 MG in SYRINGE 1 EACH IV SCH (09:23)
[2017-12-27] MEDS: FERROUS SULFATE 325 MG TABLET PO SCH (09:23)
[2017-12-27 12:26] VITALS: BP 113/55
== END 2017-12-27 12:50 | disposition home health service (06) | DRG 377 ==
LOC: EDBD → EDUNIT# → N.ED 16:35 → SUATTDRO 21:19 → N.EDINP 21:19 → N.CC 22:31 → N.4E 12-25 12:13
PROVIDERS: ADMIT Hospitalist; ATTEND Internal Medicine

== ENCOUNTER 2018-04-23 16:16 | Inpatient (IN) ==
[2018-04-23] MEDS ORDERED: SODIUM CHLORIDE 0.9% 1,000 ML IV STA (16:37)
[2018-04-23 17:42] LABS: PT Patient Result 10.4 SECS; Partial Thromboplastin Time 27.8 SECS (0-40)
[2018-04-23 17:48] LABS: Alanine Aminotransferase 23 U/L (13-56); Albumin 2.4 G/DL (3.4-5.0); Alkaline Phosphatase 123 U/L (45-117); Aspartate Amino Transferase 18 U/L (0-37); Blood Urea Nitrogen 23 MG/DL (7-18); Calcium 8.6 MG/DL (8.5-10.1); Glucose 245 MG/DL (74-106); Osmolality,Calculated 294.1 MOS/KG (273-304); Potassium 3.9 MMOL/L (3.5-5.1); Sodium 142 MMOL/L (136-145); Total Protein 7.7 G/DL (6.4-8.3); Troponin I < 0.015 NG/ML (0.00-0.045)
[2018-04-23 18:17] LABS: Apearance,Urine CLEAR (Clear); Bilirubin,Urine Negative (Negative); Blood, Urine Negative (Negative); Glucose,Urine (UA) 50 mg/dL (Negative); Ketones,Urine Negative (Negative); Mucus,Urine Occasional /LPF (Occasional); Nitrite,Urine Negative (Negative); Protein,Urine 30 MG/DL; RBC,Urine <1 /HPF (0-4); Urine Color Yellow (Yellow); Urine Specific Gravity 1.019 (1.001-1.035); WBC,Urine 1 /HPF (0-6)
[2018-04-23 18:52] LABS: Eosinophils % 0.3 % (0.00-10.9); Hematocrit 18.3 VOL% (35.7-47.0); Immature Granulocytes % 0.3 %; Immature Granulocytes Absolute 0.02 #; Lymphocytes # 0.9 10*3/uL (1.4-4.0); Lymphocytes % 13.1 % (21.3-54.2); Mean Corpuscular HGB Conc 29.5 GM/DL (32-36); Mean Corpuscular Hemoglobin 35 PG (27-34); Mean Corpuscular Volume 117.3 FL (87-102); Mean Platelet Volume 13.9 FL (9.6-12.0); Monocytes # 0.4 10*3/uL (0.11-0.8); Monocytes % 5.8 % (1.7-12.7); Neutrophils # 5.7 10*3/uL (1.4-7.4); Neutrophils % 80.5 % (38.7-73.9); Platelet Count 64 T/CUMM (130-400); Red Blood Count 1.56 MC/CUMM (3.8-5.5); Red Cell Distribution Width 18.5 % (9.3-17.3); White Blood Count 7.1 T/CUMM (4-12)
[2018-04-23 18:54] LABS: Hemoglobin 5.4 GM/DL (12.0-16.0)
[2018-04-23] MEDS ORDERED: PANTOPRAZOLE INJ 80 MG in SODIUM CHLORIDE 0.9% 100 ML IV ONE (19:17)
[2018-04-23] MEDS ORDERED: NICOTINE 21 MG/24 HR PATCH TRANSDERM PRN (19:55)
[2018-04-23] MEDS ORDERED: ZALEPLON 5 MG CAPSULE PO PRN (19:55)
[2018-04-23] MEDS ORDERED: guaiFENesin/DM ER 600-30 MG TABLET PO PRN (19:55)
[2018-04-23] MEDS ORDERED: ONDANSETRON 4 MG/2 ML VIAL IV PRN (19:55)
[2018-04-23] MEDS ORDERED: diphenhydrAMINE CAP 25 MG CAPSULE PO PRN (19:55)
[2018-04-23] MEDS ORDERED: BISACODYL 5 MG TABLET PO PRN (19:55)
[2018-04-23] MEDS ORDERED: MORPHINE 4 MG/1 ML VIAL IV PRN (19:55)
[2018-04-23] MEDS ORDERED: ACETAMINOPHEN 325 MG TABLET PO PRN (19:55)
[2018-04-23] MEDS ORDERED: SODIUM CHLORIDE 0.9% 1,000 ML IV PRN (19:55)
[2018-04-23] MEDS ORDERED: PANTOPRAZOLE INJ 200 MG in SODIUM CHLORIDE 0.9% 250 ML IV SCH (20:00)
[2018-04-23] MEDS ORDERED: PANTOPRAZOLE 40 MG VIAL IV ONE ×2 (20:15→21:42)
[2018-04-24] MEDS ORDERED: SODIUM CHLORIDE 0.9% 1,000 ML IV PRN (06:58)
[2018-04-24 08:09] LABS: Basophils % 0.1 % (0.0-0.8); Eosinophils % 0.1 % (0.00-10.9); Hematocrit 24.6 VOL% (35.7-47.0); Immature Granulocytes % 0.3 %; Immature Granulocytes Absolute 0.02 #; Lymphocytes # 0.7 10*3/uL (1.4-4.0); Lymphocytes % 9.9 % (21.3-54.2); Mean Corpuscular HGB Conc 31.7 GM/DL (32-36); Mean Corpuscular Hemoglobin 32 PG (27-34); Mean Corpuscular Volume 99.6 FL (87-102); Mean Platelet Volume 14.2 FL (9.6-12.0); Monocytes # 0.5 10*3/uL (0.11-0.8); Monocytes % 6.5 % (1.7-12.7); Neutrophils # 5.9 10*3/uL (1.4-7.4); Neutrophils % 83.1 % (38.7-73.9); Red Cell Distribution Width 25.1 % (9.3-17.3); White Blood Count 7.1 T/CUMM (4-12)
[2018-04-24 08:12] LABS: Hemoglobin 7.8 GM/DL (12.0-16.0); Platelet Count 61 T/CUMM (130-400); Red Blood Count 2.47 MC/CUMM (3.8-5.5)
[2018-04-24 08:30] LABS: Albumin 2.2 G/DL (3.4-5.0); Bilirubin,Total 0.9 MG/DL (0.2-1.0); Calcium 8.6 MG/DL (8.5-10.1); Osmolality,Calculated 284.3 MOS/KG (273-304); Potassium 3.9 MMOL/L (3.5-5.1); Total Protein 7.1 G/DL (6.4-8.3)
[2018-04-24 08:34] LABS: Hypochromasia 1+
[2018-04-24 08:35] LABS: Anisocytosis 1+; Macrocytosis 1+; Ovalocytes Slight; Spherocytes Slight
[2018-04-24 08:36] LABS: Platelet Estimate Decreased
[2018-04-24] MEDS ORDERED: AZELASTINE NASAL 137 MCG/SPRAY 30 ML BOTTLE BOTH NARES PRN (11:38)
[2018-04-24] MEDS: FUROSEMIDE 40 MG/4 ML VIAL IV SCH (12:24)
[2018-04-24] MEDS: FAMOTIDINE INJ 40 MG in SODIUM CHLORIDE 0.9% 100 ML IV SCH (14:24)
[2018-04-24] MEDS: CALCIUM (CARBONATE)/VITAMIN D 600 MG-400 UNIT TABLET PO SCH (17:34)
[2018-04-24] MEDS: MULTIVITAMIN (CENTRUM) TABLET PO SCH (17:34)
[2018-04-24] MEDS: ASCORBIC ACID 500 MG TABLET PO SCH (17:34)
[2018-04-24] MEDS: MEMANTINE 5 MG TABLET PO SCH (17:34)
[2018-04-24] MEDS: MONTELUKAST 10 MG TABLET PO SCH (21:16)
[2018-04-24] MEDS: DONEPEZIL 10 MG TABLET PO SCH (21:16)
[2018-04-24] MEDS: CARVEDILOL 3.125 MG TABLET PO SCH (21:16)
[2018-04-24] MEDS: ATORVASTATIN 80 MG TABLET PO SCH (21:17)
[2018-04-25] MEDS: FAMOTIDINE INJ 40 MG in SODIUM CHLORIDE 0.9% 100 ML IV SCH ×2 (00:43→13:41)
[2018-04-25 04:45] LABS: Basophils % 0.3 % (0.0-0.8); Eosinophils % 0.4 % (0.00-10.9); Hematocrit 33.6 VOL% (35.7-47.0); Hemoglobin 10.8 GM/DL (12.0-16.0); Immature Granulocytes % 0.6 %; Immature Granulocytes Absolute 0.04 #; Lymphocytes # 0.8 10*3/uL (1.4-4.0); Lymphocytes % 11.4 % (21.3-54.2); Mean Corpuscular HGB Conc 32.1 GM/DL (32-36); Mean Corpuscular Hemoglobin 30 PG (27-34); Mean Corpuscular Volume 91.8 FL (87-102); Mean Platelet Volume 12.9 FL (9.6-12.0); Monocytes # 0.5 10*3/uL (0.11-0.8); Monocytes % 6.8 % (1.7-12.7); Neutrophils # 5.4 10*3/uL (1.4-7.4); Neutrophils % 80.5 % (38.7-73.9); Platelet Count 64 T/CUMM (130-400); Red Blood Count 3.66 MC/CUMM (3.8-5.5); Red Cell Distribution Width 24.2 % (9.3-17.3); White Blood Count 6.8 T/CUMM (4-12)
[2018-04-25 05:02] LABS: Albumin 2.1 G/DL (3.4-5.0); Bilirubin,Total 2.5 MG/DL (0.2-1.0); Calcium 9.3 MG/DL (8.5-10.1); Osmolality,Calculated 276.8 MOS/KG (273-304); Potassium 3.3 MMOL/L (3.5-5.1); Total Protein 7.7 G/DL (6.4-8.3)
[2018-04-25 05:14] LABS: Band Neutrophils 1 % (0-10); Hypochromasia 1+; Lymphocytes 6 % (20-55); Platelet Estimate Decreased; Segmented Neutrophils 89 % (50-85); Total Cells Counted 100
[2018-04-25 05:15] LABS: Macrocytosis Slight
[2018-04-25] MEDS: MULTIVITAMIN (CENTRUM) TABLET PO SCH ×2 (10:03→17:59)
[2018-04-25] MEDS: LORATADINE 10 MG TABLET PO SCH (10:03)
[2018-04-25] MEDS: ASCORBIC ACID 500 MG TABLET PO SCH ×2 (10:03→18:00)
[2018-04-25] MEDS: CALCIUM (CARBONATE)/VITAMIN D 600 MG-400 UNIT TABLET PO SCH ×2 (10:03→18:00)
[2018-04-25] MEDS: CETIRIZINE 10 MG TABLET PO SCH (10:04)
[2018-04-25] MEDS: ISOSORBIDE MONONITRATE 30 MG TABLET PO SCH (10:04)
[2018-04-25] MEDS: CARVEDILOL 3.125 MG TABLET PO SCH ×2 (10:04→20:47)
[2018-04-25] MEDS: FERROUS SULFATE 325 MG TABLET PO SCH (10:04)
[2018-04-25] MEDS: MEMANTINE 5 MG TABLET PO SCH ×2 (10:10→18:00)
[2018-04-25] MEDS: FUROSEMIDE 40 MG/4 ML VIAL IV SCH (10:14)
[2018-04-25] MEDS ORDERED: MAGNESIUM SULF RIDER 4 GM in PREMIX 1 EACH IV PRN (18:32)
[2018-04-25] MEDS ORDERED: MAGNESIUM SULF RIDER 2 GM in PREMIX 1 EACH IV PRN (18:32)
[2018-04-25] MEDS: MONTELUKAST 10 MG TABLET PO SCH (20:47)
[2018-04-25] MEDS: DONEPEZIL 10 MG TABLET PO SCH (20:47)
[2018-04-25] MEDS: ATORVASTATIN 80 MG TABLET PO SCH (20:49)
[2018-04-26] MEDS: FAMOTIDINE INJ 40 MG in SODIUM CHLORIDE 0.9% 100 ML IV SCH ×2 (03:20→13:46)
[2018-04-26 05:20] LABS: Basophils % 0.3 % (0.0-0.8); Eosinophils % 0.3 % (0.00-10.9); Hematocrit 35.2 VOL% (35.7-47.0); Hemoglobin 11.2 GM/DL (12.0-16.0); Immature Granulocytes % 0.5 %; Immature Granulocytes Absolute 0.04 #; Lymphocytes # 0.8 10*3/uL (1.4-4.0); Lymphocytes % 11.1 % (21.3-54.2); Mean Corpuscular HGB Conc 31.8 GM/DL (32-36); Mean Corpuscular Hemoglobin 30 PG (27-34); Mean Corpuscular Volume 92.9 FL (87-102); Mean Platelet Volume 13.1 FL (9.6-12.0); Monocytes # 0.6 10*3/uL (0.11-0.8); Monocytes % 8.4 % (1.7-12.7); Neutrophils # 5.9 10*3/uL (1.4-7.4); Neutrophils % 79.4 % (38.7-73.9); Platelet Count 66 T/CUMM (130-400); Red Blood Count 3.79 MC/CUMM (3.8-5.5); Red Cell Distribution Width 22.8 % (9.3-17.3); White Blood Count 7.5 T/CUMM (4-12)
[2018-04-26 05:50] LABS: Bilirubin,Total 1.9 MG/DL (0.2-1.0); Calcium 9.4 MG/DL (8.5-10.1); Osmolality,Calculated 282.7 MOS/KG (273-304); Potassium 3.4 MMOL/L (3.5-5.1); Total Protein 7.9 G/DL (6.4-8.3)
[2018-04-26 05:52] LABS: Eosinophils 1 % (0-10); Hypochromasia 1+; Lymphocytes 11 % (20-55); Macrocytosis Slight; Ovalocytes Slight; Platelet Estimate Decreased; Segmented Neutrophils 79 % (50-85); Total Cells Counted 100
[2018-04-26] MEDS: POTASSIUM CHLORIDE RIDER 10 MEQ in PREMIX 1 EACH IV PRN ×2 (06:40→11:00)
[2018-04-26] MEDS ORDERED: HEPARIN LOCK FLUSH 500 UNIT/5 ML SYRINGE IV ONE (10:07)
[2018-04-26] MEDS: CALCIUM (CARBONATE)/VITAMIN D 600 MG-400 UNIT TABLET PO SCH (10:30)
[2018-04-26] MEDS: FERROUS SULFATE 325 MG TABLET PO SCH (10:30)
[2018-04-26] MEDS: CETIRIZINE 10 MG TABLET PO SCH (10:30)
[2018-04-26] MEDS: ASCORBIC ACID 500 MG TABLET PO SCH (10:30)
[2018-04-26] MEDS: MULTIVITAMIN (CENTRUM) TABLET PO SCH (10:30)
[2018-04-26] MEDS: FUROSEMIDE 40 MG/4 ML VIAL IV SCH (10:30)
[2018-04-26] MEDS: MEMANTINE 5 MG TABLET PO SCH (10:30)
[2018-04-26] MEDS: CARVEDILOL 3.125 MG TABLET PO SCH (10:31)
[2018-04-26] MEDS: LORATADINE 10 MG TABLET PO SCH (10:31)
[2018-04-26] MEDS: ISOSORBIDE MONONITRATE 30 MG TABLET PO SCH (10:31)
[2018-04-26 11:57] VITALS: BP 144/77
== END 2018-04-26 15:00 | disposition hospice, home (50) | DRG 181 ==
LOC: EDUNIT# → EDBD → N.ED 16:16 → SUATTDRO 19:55 → N.EDINP 19:55 → N.4E 20:17
PROVIDERS: ADMIT Internal Medicine; ATTEND Hospitalist